=== PATIENT | female | born 1960 | race Caucasian/White ===

== ENCOUNTER → 2017-06-05 | Outpatient (REF) | payer OTHER | LOC: M LAB REF 12:26 | DX: J02.9 Acute pharyngitis, unspecified (principal) ==

== ENCOUNTER → 2017-06-11 | Outpatient (CLI) | payer SELFPAY, BC, OTHER | LOC: M RAD 07:39 | DX: Z87.891 Personal history of nicotine dependence (principal); R91.1 Solitary pulmonary nodule ==

== ENCOUNTER 2017-09-23 09:19 | Emergency (ER) | payer OTHER | END 2017-09-23 10:20 | disposition home or self-care (01) | LOC: M ED 09:19 | DX: J01.90 Acute sinusitis, unspecified (principal); H92.09 Otalgia, unspecified ear; J45.909 Unspecified asthma, uncomplicated; I10 Essential (primary) hypertension; Z87.891 Personal history of nicotine dependence; Z88.0 Allergy status to penicillin; Z88.2 Allergy status to sulfonamides; Z79.899 Other long term (current) drug therapy; Z79.51 Long term (current) use of inhaled steroids | CPT/HCPCS: 87880 ==

== ENCOUNTER → 2018-06-13 | Outpatient (CLI) | payer OTHER ==
[~2018-06-13] MED LIST: FLUT11IN INH; LOTR52CA PO; PRED20TA PO; PROAAER10 INH; ZITHTAB PO
--- NOTE | 2018-06-13 10:40 | REP ---
LOW-DOSE LUNG CANCER SCREENING CT STUDY OF THE CHEST: HISTORY: Nicotine dependence. COMPARISON STUDY: June 11, 2017. Comparison is also made with June 25, [address] FINDINGS: Preliminary digital human resources trainee radiograph is unremarkable. There is some vascular calcification. A benign granulomatous calcification is noted in the right upper lobe, unchanged. There are mild interstitial fibrosis changes in the lower lobes and lingula at the bases bilaterally. These findings are essentially unchanged allowing for differences in inspiratory level. No significant pulmonary nodule or mass lesion is observed. IMPRESSION: Lung-RADS category 2 benign findings. Repeat screening suggested in 1 year. Bibasilar interstitial fibrosis changes again noted. Electronically Signed by Hola Shah MD 06/13/2018 12:07 P
== END ==
LOC: M RAD 07:45
PROVIDERS: ATTEND Internal Medicine Pulmonary Disease
DX: Z12.2 Encounter for screening for malignant neoplasm of respiratory organs (principal); J45.30 Mild persistent asthma, uncomplicated; Z87.891 Personal history of nicotine dependence

== ENCOUNTER → 2018-06-27 | Outpatient (CLI) | payer OTHER ==
--- NOTE | 2018-06-28 08:36 | REP ---
Maxillofacial CT study: Without contrast. History: Chronic maxillary sinusitis. Findings: Digital preliminary energy projects lead radiographs are unremarkable. There is a calcified mass arising from the medial floor of the left anterior cranial fossa just posterior to the olfactory recesses and just to the left of midline. This measures 14 x 15 x 20 mm in craniocaudal by medial to lateral by anterior to posterior dimension respectively. It is most likely a calcified meningioma. The peripheral calcification pattern may be seen at aneurysm but this is less likely. There is atherosclerotic vascular calcification in the carotid siphons. Otherwise intracranial structures appear intact. There is minimal mucosal thickening in the maxillary sinuses inferiorly and medially. Ethmoid sinuses and frontal sinuses are clear. Sphenoid aeration is normal. Mastoid aeration is normal and symmetric. No petrous bone abnormality is appreciated. No intraorbital lesion is seen. Coronal images demonstrate patent ostiomeatal complexes bilaterally despite the presence of bilateral Frandy cells. Bony nasal septum is in the midline. There is no evidence of nasal polyp. Impression: Minimal mucosal changes in the maxillary sinuses bilaterally. There is an incidental finding of a 2 cm calcified mass in the anteromedial anterior cranial fossa. This is likely a meningioma. Brain MRI study is suggested. Electronically Signed by Hola Shah MD 06/28/2018 07:56 P
== END ==
LOC: M RAD 17:24
PROVIDERS: ATTEND Otolaryngology
DX: J32.0 Chronic maxillary sinusitis (principal); R93.0 Abnormal findings on diagnostic imaging of skull and head, not elsewhere classified

== ENCOUNTER → 2018-12-05 | Outpatient (CLI) | payer OTHER ==
--- NOTE | 2018-12-06 02:19 | REP ---
Clinical: Cough . Comparison: None . Technique: PA and lateral. Findings: The mediastinum and cardiac silhouette are normal. The lung solis are clear and without acute consolidation, effusion, or pneumothorax. The skeletal structures are intact and normal. Impression: 1. No acute cardiopulmonary process. Electronically Signed by George Mcintosh MD 12/06/2018 02:11 A
== END ==
LOC: M RAD 18:02
PROVIDERS: ATTEND Internal Medicine Pulmonary Disease
DX: R05 Cough (principal)

== ENCOUNTER → 2018-12-05 | Outpatient (REF) | payer OTHER | LOC: M LAB REF 19:21 | PROVIDERS: ATTEND Internal Medicine Pulmonary Disease | DX: R05 Cough (principal) ==

== ENCOUNTER → 2018-12-09 | Outpatient (CLI) | payer OTHER ==
[2018-12-09 09:41] LABS: BLOOD UREA NITROGEN 19 MG/DL (7-18); CREATININE FOR GFR 0.92 MG/DL (0.55-1.30); GLOMERULAR FILTRATION RATE > 60.0 (>45)
== END ==
LOC: M LAB 08:04
PROVIDERS: ATTEND Internal Medicine Pulmonary Disease
DX: Z01.818 Encounter for other preprocedural examination (principal); C00-D49 Neoplasms

== ENCOUNTER → 2018-12-10 | Outpatient (CLI) | payer OTHER ==
[~2018-12-10] MED LIST changes: +PROHANCE 279.3MG/ML 15ML VIAL (A9576) As Ordered ONE; +PROHANCE 279.3MG/ML 5ML VIAL (A9576) As Ordered ONE
--- NOTE | 2018-12-10 10:56 | REP ---
MRI BRAIN WITHOUT AND WITH IV CONTRAST: HISTORY: Neoplasm of uncertain behavior. COMPARISON: Maxillofacial CT study June 27, 2018. This prior study showed a 2 cm calcified mass in the anterior cranial fossa floor just to the left of midline. TECHNIQUE: Axial and sagittal imaging planes are utilized for T1 and T2-weighted scans. Sequences include spin-echo, fast spin echo, FLAIR, and diffusion weighted sequences. GADOLINIUM ENHANCEMENT DOSE: 20 mL of intravenous ProHance. MRI FINDINGS: No bony calvarial lesion is seen. Craniocervical junction and upper cervical cord are normal in appearance. The precontrast imaging confirms the presence of a 16 mm extra-axial nodule in the anteromedial frontal lobe on the left side. This it is characterized by isointense T1- and T2-weighted signal with low T1- and T2 signal intensity margin consistent with a rim calcification pattern seen on CT. There is minimal adjacent edema in the olfactory lobe on the left adjacent to the lesion. There is fairly bright to slightly heterogeneous contrast enhancement in the lesion on postcontrast images. No adjacent parenchymal enhancement is seen. No other intracranial mass lesion is observed. There are scattered T2 hyperintensities in the periventricular and subcortical white matter bilaterally consistent with small vessel atherosclerotic changes. Diffusion weighted scans show no evidence of restricted diffusion to suggest acute ischemia. No extra-axial fluid collection or midline shift is seen. 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 Small vessel atherosclerotic changes. Otherwise negative. Electronically Signed by Hola Shah MD 12/10/2018 04:06 P
== END ==
LOC: M RAD 08:26
PROVIDERS: ATTEND Internal Medicine Pulmonary Disease
DX: D32.0 Benign neoplasm of cerebral meninges (principal); I67.2 Cerebral atherosclerosis
CPT/HCPCS: 70553; A9576

== ENCOUNTER 2019-08-11 15:43 | Day surgery (SDC) | payer OTHER ==
[~2019-08-11] VITALS: Ht 167.6 cm; Wt 109.2 kg
[~2019-08-11 15:43] MED LIST changes: -ADVA115A INH; -CIPR-249 PO; -FAMO40TA3 PO; -FLAG250T PO; -FLUC10TA PO; -OMEP-221 PO
[2019-08-11] MEDS ORDERED: DICYCLOMINE 10 MG CAP PO ONE (16:15)
[2019-08-11] MEDS ORDERED: FAMO40TA3 PO (16:32)
[2019-08-11] MEDS ORDERED: OMEP-221 PO (16:32)
[2019-08-11] MEDS ORDERED: ADVA115A INH (16:32)
[2019-08-11] MEDS ORDERED: ONDANSETRON 4MG/2ML VIAL IV ONE (16:45)
[2019-08-11] MEDS: GASTROGRAFIN SOLUTION 30ML PO SCH ×2 (17:15→17:49)
[2019-08-11] MEDS ORDERED: ISOVUE-370 76% 100ML VIAL As Ordered ONE (18:26)
--- NOTE | 2019-08-11 19:06 | REPVR ---
PROCEDURE INFORMATION: Exam: CT Abdomen And Pelvis With Contrast Exam date and time: 08/11/2019 6:33 PM Age: 58 years old Clinical indication: Abdominal pain; Generalized; Additional info: Abd pain TECHNIQUE: Imaging protocol: Computed tomography of the abdomen and pelvis with intravenous contrast. Axial, coronal and sagittal reformatted images were created and reviewed. Radiation optimization: All CT scans at this facility use at least one of these dose optimization techniques: automated exposure control; mA and/or kV adjustment per patient size (includes targeted exams where dose is matched to clinical indication); or iterative reconstruction. Contrast material: ISOVUE 370; Contrast volume: 100 ml; Contrast route: IV; COMPARISON: No relevant prior studies available. FINDINGS: Lungs: Minimal bibasilar atelectatic change. Mediastinum: Small hiatal hernia. Liver: Diffuse hepatic steatosis. Gallbladder and bile ducts: Status post cholecystectomy. No biliary ductal dilatation. Pancreas: Coarse pancreatic parenchymal calcifications, consistent with chronic pancreatitis. Spleen: Unremarkable. Adrenals: Unremarkable. Kidneys and ureters: 11 mm low-density right renal lesion, likely a complex cyst. No radiodense calculi. No hydronephrosis. Stomach and bowel: Scattered colonic diverticula without evidence of diverticulitis. No obstruction. No bowel wall thickening. No pneumatosis. Appendix: Dilated, thickwalled, hyperemic retrocecal appendix with mild periappendiceal inflammatory change and intraluminal appendicolith. Intraperitoneal space: No free fluid. No organized fluid collection. No free air. Vasculature: Mild atherosclerotic disease. No aneurysm or dissection. Lymph nodes: No pathologically enlarged lymph nodes. Bladder: Tiny focus of gas in the nondependent urinary bladder, suggestive of recent instrumentation. Reproductive: Unremarkable. Bones/joints: No acute osseous abnormality. Osteopenia. Degenerative changes. Soft tissues: Unremarkable. IMPRESSION: 1. Acute retrocecal appendicitis. No abscess, obstruction or free air. 2. Additional findings, as above. Electronically signed by: Heladio Mane On 08/11/2019 19:05:45 PM
[2019-08-11] MEDS ORDERED: NS 1,000 ML IV SCH (19:30)
[2019-08-11] MEDS ORDERED: BUPIVACAINE/EPIN 0.25% 30 ML VIAL As Ordered ONE (19:54)
[2019-08-11] MEDS ORDERED: metroNIDAZOLE 500 MG in IV 1 EA IV ONE (20:00)
[2019-08-11] MEDS ORDERED: CIPROFLOXACIN 400 MG in IV 1 EA IV ONE (20:00)
[2019-08-11 20:07] LABS: INR 1.03; PROTHROMBIN TIME 13.2 SECONDS (11.8-14.0)
[2019-08-11] MEDS ORDERED: MIDAZOLAM INJ 2MG/2ML VIAL (J2250 PER 1MG) As Ordered ONE (20:22)
[2019-08-11] MEDS ORDERED: propofoL 200 MG/20 ML VIAL As Ordered ONE (20:22)
[2019-08-11] MEDS ORDERED: dexameTHASONE 4 MG/ML 1ML VIAL (J1100 PER 1MG) As Ordered ONE (20:22)
[2019-08-11] MEDS ORDERED: fentaNYL 250 MCG/5 ML INJECTION (J3010) As Ordered ONE (20:22)
[2019-08-11] MEDS ORDERED: ONDANSETRON 4MG/2ML VIAL As Ordered ONE (20:22)
[2019-08-11] MEDS ORDERED: LIDOCAINE 2% 100MG/5ML SDV (FOR ANES.) As Ordered ONE (20:22)
[2019-08-11] MEDS ORDERED: ROCURONIUM BROMIDE 50 MG/5 ML VIAL As Ordered ONE (20:22)
[2019-08-11] MEDS ORDERED: KETOROLAC 60 MG/2 ML VIAL As Ordered ONE (20:22)
[2019-08-11] MEDS ORDERED: SUGAMMADEX SODIUM 500 MG/5 ML VIAL (BRIDION) As Ordered ONE (20:27)
[2019-08-11] MEDS ORDERED: ACETAMINOPHEN 1000MG 100ML IV BTL (OFIRMEV) (J0131 PER 10MG) As Ordered ONE (20:28)
[2019-08-11] MEDS ORDERED: SUCCINYLCHOLINE 100 MG/5 ML SYRINGE (J0330) As Ordered ONE (21:30)
[2019-08-11] MEDS ORDERED: PHENYLephrine HCL 500 MCG/5 ML (100MCG/ML) SYRINGE (J2370) As Ordered ONE (21:47)
[2019-08-11] MEDS ORDERED: ONDANSETRON 4MG/2ML VIAL IV PRN ×2 (22:15→22:30)
[2019-08-11] MEDS ORDERED: oxyCODONE 5MG TAB PO PRN (22:15)
[2019-08-11] MEDS ORDERED: LR 1,000 ML IV SCH (22:15)
[2019-08-11] MEDS ORDERED: NORCO, ANEXSIA 5/325MG TABLET (HYDROcodone/ACETAMINOPHEN) PO PRN ×2 (22:30)
[2019-08-11] MEDS ORDERED: ULTRACET TAB PO PRN ×2 (22:30)
[2019-08-11] MEDS ORDERED: MORPHINE 2 MG/ML 1ML VIAL (J2270) IV PRN (22:30)
[2019-08-11] MEDS ORDERED: ALBUTEROL 90 MCG/ACT 8GM HFA INHALER INH PRN (22:30)
[2019-08-11] MEDS: fentaNYL 100 MCG/2 ML INJECTION (J3010) IV PRN ×2 (22:37→22:42)
[2019-08-11] MEDS ORDERED: LABETALOL 100MG/20ML VIAL As Ordered ONE (22:39)
[2019-08-11] MEDS: LABETALOL 100MG/20ML VIAL IV PRN ×2 (22:40→22:45)
[2019-08-11] MEDS ORDERED: MORPHINE 4 MG/ML 1ML VIAL/SYRINGE (J2270) IV PRN (22:45)
[2019-08-11] MEDS: D5W/LR 1,000 ML IV SCH (22:56)
[2019-08-11 23:30] VITALS: BP 142/77
[2019-08-12] VITALS (7 sets, daily range): BP systolic 111–161; BP diastolic 67–87
[2019-08-12] MEDS: KETOROLAC 30 MG/ML 1ML VIAL IV SCH ×2 (02:36→08:00)
--- NOTE | 2019-08-12 03:08 | REP ---
Clinical: Preoperative assessment . Comparison: None . Findings: The mediastinum and cardiac silhouette are stable and within normal limits for portable technique. The lung solis are clear without acute consolidation, effusion, or pneumothorax. Skeletal structures are intact. Impression: No acute cardiopulmonary process appreciated. Electronically Signed by George Mcintosh MD 08/12/2019 03:00 A
[2019-08-12] MEDS: D5W/LR 1,000 ML IV SCH (05:33)
[2019-08-12] MEDS ORDERED: metroNIDAZOLE 500 MG in IV 1 EA IV SCH (06:00)
[2019-08-12] MEDS ORDERED: CIPROFLOXACIN 400 MG in IV 1 EA IV SCH (08:00)
--- NOTE | 2019-08-12 08:01 | ECGEPIP ---
[facility] - ED Test Date: 2019-08-11 Pat Name: JESSICA RIDER Department: Room: - Gender: Female Pharmacy Coordinator: miya : 1960 Requested By: ERICK COE Order Number: [id number] Reading MD: Vito Goddard Measurements Intervals [place] Rate: 85 P: 41 OR: 138 QRS: 34 QRSD: 99 T: 52 QT: 385 QTc: 459 Interpretive Statements SINUS RHYTHM NO PRIORS FOR COMPARISON Electronically Signed on 08-12-2019 8:00:56 EDT by Vito Goddard
[2019-08-12] MEDS ORDERED: ADVAIR HFA 115/21MCG INHALER INH SCH (09:00)
[2019-08-12] MEDS ORDERED: FLAG250T PO (09:57)
[2019-08-12] MEDS ORDERED: CIPR-249 PO (09:57)
[2019-08-12] MEDS ORDERED: FLUC10TA PO (09:57)
[2019-08-12] MEDS ORDERED: FAMOTIDINE 20 MG TAB PO SCH (21:00)
--- NOTE | 2019-08-15 09:29 | RO ---
DATE OF PROCEDURE: 08/11/2019 PREOPERATIVE DIAGNOSIS: Acute appendicitis. POSTOPERATIVE DIAGNOSIS: Acute appendicitis. PROCEDURE: Laparoscopic appendectomy. SURGEON: Dr. Abdirashid Dumont. 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 ESTIMATED BLOOD LOSS: Minimal. FLUIDS: Crystalloid. DESCRIPTION OF PROCEDURE: The patient was brought to the operating room and was given general anesthesia. After adequate anesthesia and preoperative antibiotics were given, the patient was prepped and draped in the usual sterile fashion. Next a supraumbilical incision was made with skin knife. Blunt dissection was carried down to fascia. Fascia was entered with a Veress needle and insufflated to 15 mm pressure. Dilating 10 mm trocar was placed and under direct visualization, a suprapubic and left lower quadrant 5 mm trocars were placed. The patient was placed in supine position and the right lower quadrant was examined. The harmonic scalpel was used to mobilize the appendix as well as the tip of the cecum and after this was mobilized, the mesentery was taken down with harmonic scalpel all the way to the base of the appendix/cecal wall. The appendix base was then transected using a RENETTA stapler and placed in an EndoCatch bag, brought out through the umbilicus. The right lower quadrant was copiously irrigated until clear. All trocars were removed under direct visualization. 0 Vicryl was used close the fascia at the umbilicus and all incisions were closed with #4-0 Vicryl. Steri-Strips and dry sterile dressing was applied. The patient was awakened, extubated, brought to the recovery room awake, alert hemodynamic stable. Sponge and needle counts correct times two.
== END 2019-08-12 10:30 | disposition home or self-care (01) ==
LOC: M ED 15:43 → M SDC 20:00 → M MS5PR 23:20 → M SDC 08-12 10:30
PROVIDERS: ATTEND Surgery
DX: K35.890 Other acute appendicitis without perforation or gangrene (principal); K21.9 Gastro-esophageal reflux disease without esophagitis; J45.909 Unspecified asthma, uncomplicated; Z87.891 Personal history of nicotine dependence; Z79.899 Other long term (current) drug therapy; Z88.0 Allergy status to penicillin; Z88.2 Allergy status to sulfonamides
CPT/HCPCS: 44970; 71045; 74177; 81001; 85610; 86850; 86900; 86901; 87086; 88304; 93005; 94640; 96361; 96365; 96366; 96375; 96376; 99284; J0131; J0330; J0744; J1100; J1885; J2250; J2370; J2405; J3010; Q9963; Q9967; U0002

== ENCOUNTER → 2019-08-11 | Outpatient (CLI) | payer OTHER ==
[~2019-08-11] MED LIST changes: +ADVA115A INH; +CIPR-249 PO; +FAMO40TA3 PO; +FLAG250T PO; +FLUC10TA PO; +OMEP-221 PO; -PROHANCE 279.3MG/ML 15ML VIAL (A9576) As Ordered ONE; -PROHANCE 279.3MG/ML 5ML VIAL (A9576) As Ordered ONE
[2019-08-11 12:21] LABS: BASO # 0.1 10^3/uL (0.0-0.2); BASO % 0.7 % (0.0-1.0); EOS % 0.4 % (0.0-3.0); HEMATOCRIT 42.3 % (36.0-47.0); HEMOGLOBIN 13.9 g/dl (12.0-15.5); LYMPH # 1.1 10^3/uL (1.5-5.0); MEAN CORPUSCULAR HEMOGLOBIN 28.5 pg (27.0-33.0); MEAN CORPUSCULAR HGB CONC 32.9 g/dl (32.0-36.5); MEAN CORPUSCULAR VOLUME 86.9 fl (80.0-96.0); MONO # 0.5 10^3/uL (0.0-0.8); MONO % 4.8 % (0.0-5.0); NEUTROPHILS # 8.5 10^3/uL (1.5-8.5); NEUTROPHILS % 82.7 % (36.0-66.0); PLATELET COUNT, AUTOMATED 375 10^3/uL (150-450); RED BLOOD COUNT 4.87 10^6/uL (4.00-5.40); WHITE BLOOD COUNT 10.2 10^3/uL (4.0-10.0)
[2019-08-11 13:01] LABS: ALT/SGPT 36 U/L (12-78); BILIRUBIN,TOTAL 0.7 MG/DL (0.2-1.0); BLOOD UREA NITROGEN 15 MG/DL (7-18); CARBON DIOXIDE LEVEL 25 MEQ/L (21-32); CHLORIDE LEVEL 105 MEQ/L (98-107); CREATININE FOR GFR 0.84 MG/DL (0.55-1.30); GLOMERULAR FILTRATION RATE > 60.0 (>45); GLUCOSE, FASTING 117 MG/DL (70-100); LIPASE 64 U/L (73-393); POTASSIUM SERUM 4.4 MEQ/L (3.5-5.1); SODIUM LEVEL 136 MEQ/L (136-145); TOTAL PROTEIN 7.4 GM/DL (6.4-8.2)
[2019-08-11 13:04] LABS: H PYLORI QUALITATIVE IgG NEGATIVE (NEGATIVE)
== END ==
LOC: M WUC 10:35
PROVIDERS: ATTEND Physician Assistant
DX: R10.10 Upper abdominal pain, unspecified (principal)

== ENCOUNTER → 2019-11-30 | Outpatient (CLI) | payer OTHER ==
[~2019-11-30] MED LIST changes: +ADVA115A INH; +CIPR-249 PO; +FAMO40TA3 PO; +FLAG250T PO; +FLUC10TA PO; +OMEP-221 PO
== END ==
LOC: M LABSMTC 08:39
PROVIDERS: ATTEND Anesthesiology
DX: Z01.818 Encounter for other preprocedural examination (principal); Z11.59 Encounter for screening for other viral diseases; Z20.828 Contact with and (suspected) exposure to other viral communicable diseases
CPT/HCPCS: C9803; U0003

== ENCOUNTER 2019-12-05 07:22 | Day surgery (SDC) | payer OTHER ==
[~2019-12-05] VITALS: Ht 167.6 cm; Wt 99.7 kg
[~2019-12-05 07:22] MED LIST changes: +NS 1,000 ML IV ONE
[2019-12-05] MEDS ORDERED: propofoL 500 MG/50 ML VIAL As Ordered ONE (08:44)
[2019-12-05] MEDS ORDERED: LIDOCAINE 2% 100MG/5ML SDV (FOR ANES.) As Ordered ONE (08:44)
--- NOTE | 2019-12-05 09:03 | ROOR ---
Patient Name: Maureen Martinez Procedure Date: 12/05/2019 8:41 AM Date of : 1960 Age: 59 Room: [facility] Gender: Female Note Status: Finalized Procedure: Total Colonoscopy to Cecum + ileoscopy Indications: Colon cancer screening in patient at increased risk: Family history of 1st-degree relative with colon polyps, High risk colon cancer surveillance: Personal history of colonic polyps, Last colonoscopy: 2014 Providers: Mo Escobar MD Referring MD: DEANNA LOVE JR, MD Requesting Provider: Medicines: Monitored Anesthesia Care Complications: No immediate complications. Procedure: Pre-Anesthesia Assessment: - The heart rate, respiratory rate, oxygen saturations, blood pressure, adequacy of pulmonary ventilation, and response to care were monitored throughout the procedure. The Colonoscope was introduced through the anus and advanced to the cecum, identified by appendiceal orifice and ileocecal valve. The colonoscopy was performed without difficulty. The patient tolerated the procedure well. The quality of the bowel preparation was excellent. Findings: The perianal and digital rectal examinations were normal. Non-bleeding internal hemorrhoids were found during retroflexion. The hemorrhoids were small and Grade I (internal hemorrhoids that do not prolapse). Multiple small and large-mouthed diverticula were found in the recto-sigmoid colon, sigmoid colon and descending colon. The terminal ileum appeared normal. The exam was otherwise without abnormality on direct and retroflexion views. Impression: - Non-bleeding internal hemorrhoids. - Diverticulosis in the recto-sigmoid colon, in the sigmoid colon and in the descending colon. - The examined portion of the ileum was normal. - The examination was otherwise normal on direct and retroflexion views. - No specimens collected. - The exam was otherwise normal to the cecum. Recommendation: - Patient has a contact number available for emergencies. The signs and symptoms of potential delayed complications were discussed with the patient. Return to normal activities tomorrow. Written discharge instructions were provided to the patient. - High fiber diet. - Discharge patient to home. - Continue present medications. - Repeat colonoscopy in 5 years for screening purposes. - Return to referring physician. - The findings and recommendations were discussed with the patient. Mo Escobar MD Mo Escobar MD 12/05/2019 9:02:38 AM Electronically signed by Mo Escobar MD Number of Addenda: 0 Note Initiated On: 12/05/2019 8:41 AM Estimated Blood Loss: Estimated blood loss: none.
[2019-12-05 09:25] VITALS: BP 147/73
== END 2019-12-05 09:40 | disposition home or self-care (01) ==
LOC: M OPP 07:22
PROVIDERS: ATTEND Internal Medicine Gastroenterology
DX: Z12.11 Encounter for screening for malignant neoplasm of colon (principal); Z86.010 Personal history of colon polyps; Z83.71 Family history of colonic polyps; K57.30 Diverticulosis of large intestine without perforation or abscess without bleeding; K64.0 First degree hemorrhoids; Z79.899 Other long term (current) drug therapy; Z88.0 Allergy status to penicillin; Z88.2 Allergy status to sulfonamides; Z88.5 Allergy status to narcotic agent; Z87.891 Personal history of nicotine dependence

== ENCOUNTER → 2020-01-23 | Outpatient (CLI) | payer OTHER ==
[~2020-01-23] MED LIST changes: -NS 1,000 ML IV ONE
--- NOTE | 2020-01-23 15:18 | REP ---
INDICATION: MENINGIOMA,CEREBRAL/FILE ROOM. COMPARISON: Comparison MRI study December 10, 2018.. TECHNIQUE: Axial and sagittal imaging planes are utilized for T1 and T2-weighted scans. Sequences include spin-echo, fast spin echo, FLAIR, and diffusion weighted sequences. FINDINGS: No bony calvarial lesion is seen. Craniocervical junction and upper cervical cord are normal in appearance. There is no MR evidence of significant paranasal sinus disease. No intraorbital abnormality is seen. The lateral, third, and fourth ventricles are normal in size and position. Previously noted left olfactory groove meningioma is again seen. This measures 1.6 cm in greatest anteroposterior dimension and is felt to be unchanged from the prior study of 12/10/2018. There is minimal adjacent edema on T2 weighted scans. This is unchanged as well. Mild small vessel changes are again noted in the periventricular white matter. There is no evidence of intra-axial or other extra-axial mass lesion. No infarct or hemorrhage is seen. Diffusion-weighted scans show no evidence of restricted diffusion.. 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 <Electronically signed by Mo Shah > 01/23/20 [id number]
== END ==
LOC: M RAD 12:26
PROVIDERS: ATTEND Neurological Surgery
DX: D32.0 Benign neoplasm of cerebral meninges (principal)

== ENCOUNTER → 2020-02-24 | Outpatient (CLI) | payer SELFPAY | LOC: M LABSMTC 08:30 | PROVIDERS: ATTEND Pediatrics | DX: Z11.59 Encounter for screening for other viral diseases (principal) ==

== ENCOUNTER → 2020-10-20 | Outpatient (CLI) | payer OTHER ==
--- NOTE | 2020-10-20 09:38 | REP ---
INDICATION: PERSONAL H/O NICOTINE DEPEND. COMPARISON: The most recent prior low-dose lung screening chest CT dated 10/09/2019 and the most remote low-dose lung screening chest CT dated 06/11/2017. TECHNIQUE: The study is performed without IV contrast. Images are presented at lung windowing only. FINDINGS: There is a stable 5 mm calcified granuloma peripherally in the right upper lobe, unchanged from both prior studies. There is a new 7.5 cm ground-glass density in the posterior basilar segment of the right lower lobe, not present on the comparison studies. There is a new ground-glass density in the medial basilar segment of the left lower lobe measuring 3.8 cm, not present previously. There are no other new nodules, infiltrates or effusions. IMPRESSION: New bilateral lower lobe ground-glass densities, nonspecific. The These ground-glass densities convert to the study 2 a category 3 low-dose lung screening chest CT. The probability of malignancy is 1-2%. These new ground-glass densities could represent acute infiltrates. Correlation with clinical findings is recommended. Follow-up chest CT should be performed as felt to be clinically appropriate. Otherwise, follow-up low-dose lung screening chest CT is recommended in 6 months. <Electronically signed by Yao Marques > 10/20/20 [id number]
== END ==
LOC: M RAD 07:04
PROVIDERS: ATTEND Internal Medicine Pulmonary Disease
DX: F17.200 Nicotine dependence, unspecified, uncomplicated (principal)

== ENCOUNTER → 2021-02-02 | Outpatient (CLI) | payer OTHER ==
--- NOTE | 2021-02-02 18:21 | REPVR ---
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 TECHNIQUE: Imaging protocol: MR of the head without contrast. COMPARISON: MRI-Brain without Contrast 01/23/2020 12:56 PM FINDINGS: Brain: Stable size and appearance of approximately 1.6 cm T1 isointense and peripherally T2 hypointense extra-axial mass along the anteromedial inferior left frontal lobe with slight mass effect and vasogenic edema upon the adjacent left gyrus rectus, appearance most suggestive of meningioma. No new intracranial mass identified. Redemonstration of scattered nonspecific T2/FLAIR hyperintensities of the periventricular and deep subcortical white matter, most likely secondary to chronic small vessel ischemic change. No evidence of acute intracranial hemorrhage or extra-axial fluid collection. No midline shift. No restricted diffusion to suggest acute infarct. Cerebral ventricles: No ventriculomegaly. Bones/joints: Unremarkable. Paranasal sinuses: Normal as visualized. No acute sinusitis. Mastoid air cells: No mastoid effusion. Orbital cavity: Unremarkable. Soft tissues: Unremarkable. IMPRESSION: 1. Stable size and appearance of approximately 1.6 cm extra-axial mass along the anteromedial inferior left frontal lobe with slight mass effect and vasogenic edema involving the adjacent left gyrus rectus, appearance most suggestive of meningioma. If clinically indicated, this can be further evaluated with post-contrast MR sequences. Continued interval follow-up at the discretion of neurosurgery. 2. Other chronic findings, as above. Electronically signed by: Honorio Flores On 02/02/2021 18:20:27 PM
== END ==
LOC: M RAD 16:10
PROVIDERS: ATTEND Neurological Surgery
DX: D32.0 Benign neoplasm of cerebral meninges (principal)

== ENCOUNTER → 2021-04-15 | Outpatient (CLI) | payer BC ==
[~2021-04-15] MED LIST changes: -OMEP-221 PO; +OMEP40CA5 PO
== END ==
LOC: M RAD 17:21
PROVIDERS: ATTEND Internal Medicine Pulmonary Disease
DX: R91.8 Other nonspecific abnormal finding of lung field (principal)

== ENCOUNTER → 2021-11-09 | Outpatient (CLI) | payer BC | LOC: M WHC 06:43 | PROVIDERS: ATTEND Internal Medicine | DX: Z12.31 Encounter for screening mammogram for malignant neoplasm of breast (principal) ==

== ENCOUNTER → 2022-04-24 | Outpatient (CLI) | payer BC | LOC: M RAD 17:14 | PROVIDERS: ATTEND Internal Medicine Pulmonary Disease | DX: Z12.2 Encounter for screening for malignant neoplasm of respiratory organs (principal); Z87.891 Personal history of nicotine dependence ==

== ENCOUNTER → 2023-04-09 | Outpatient (CLI) | payer BC ==
[~2023-04-09] MED LIST changes: -FLUT11IN INH; +FLUT12AE6 INH
== END ==
LOC: M RAD 07:59
PROVIDERS: ATTEND Internal Medicine
DX: K76.0 Fatty (change of) liver, not elsewhere classified (principal); Z90.49 Acquired absence of other specified parts of digestive tract

== ENCOUNTER → 2023-04-12 | Outpatient (CLI) | payer BC | LOC: M WHC 12:10 | PROVIDERS: ATTEND Internal Medicine | DX: Z12.31 Encounter for screening mammogram for malignant neoplasm of breast (principal) ==

== ENCOUNTER → 2023-06-15 | Outpatient (CLI) | payer BC | LOC: M RAD 07:25 | PROVIDERS: ATTEND Internal Medicine Pulmonary Disease | DX: Z12.2 Encounter for screening for malignant neoplasm of respiratory organs (principal); Z87.891 Personal history of nicotine dependence ==

== ENCOUNTER → 2023-09-24 | Outpatient (REF) | payer BC | LOC: M LAB REF 10:28 | PROVIDERS: ATTEND Student in an Organized Health Care Education/Training Program | DX: R30.0 Dysuria (principal) ==

== ENCOUNTER → 2023-10-03 | Outpatient (REF) | payer BC | LOC: M LAB REF 16:28 | PROVIDERS: ATTEND Nurse Practitioner Family | DX: R30.0 Dysuria (principal) ==

== ENCOUNTER → 2023-10-24 | Outpatient (CLI) | payer BC | LOC: M LAB 17:35 → M RAD 17:35 | PROVIDERS: ATTEND Internal Medicine Pulmonary Disease | DX: R05.1 Acute cough (principal) ==

== ENCOUNTER → 2024-06-16 | Outpatient (CLI) | payer BC | LOC: M RAD 07:59 | PROVIDERS: ATTEND Internal Medicine | DX: K74.00 Hepatic fibrosis, unspecified (principal) ==

== ENCOUNTER → 2024-06-26 | Outpatient (CLI) | payer BC | LOC: M RAD 07:00 | PROVIDERS: ATTEND Internal Medicine Pulmonary Disease | DX: Z12.2 Encounter for screening for malignant neoplasm of respiratory organs (principal); Z87.891 Personal history of nicotine dependence; J43.8 Other emphysema ==

== ENCOUNTER → 2024-07-21 | Outpatient (CLI) | payer BC | LOC: M WHC 16:18 | PROVIDERS: ATTEND Internal Medicine | DX: Z12.31 Encounter for screening mammogram for malignant neoplasm of breast (principal) ==